=== PATIENT | female | born 1945 | race Two or more races ===

== ENCOUNTER 2017-10-19 22:15 | Inpatient (IN) | payer MEDICARE, OTHER ==
[~2017-10-19] VITALS: Ht 167.6 cm; Wt 68.0 kg
--- NOTE | 2017-10-20 | NUR ---
ADMITTED DIRECTLY FROM [facility], BROUGHT IN BY PARAMEDICS VIA GURNEY,CAME TO THE UNIT AROUND MIDNIGHT. ADMITTED ON 5150 HOLD FOR DTS. UPON FACE TO FACE PATIENT APPEARED DISHEVELED, HOPELESS AND DISTRESSED. DAUGHTER REPORTED THAT HER MOTHER HAD SUICIDAL IDEATION WITH A PLAN. PATIENT STATED, " I JUST WANTED TO , I WOULD LIKE TO TAKE THE PILLS. PATIENT WAS PLACED IN BED COMFORTABLY, SHOWS NO S/S OF ANY PAIN. RESPIRATION EVEN, BREATHING PATTERN NON-LABORED, NO ACUTE DISTRESS NOTED. PATIENT IS A/O X 3-4, THOUGHT PROCESS INTACT, APPROPRIATE, CALM, PLEASANT, COOPERATIVE, ANXIOUS, DEPRESSED. PATIENT IS A FULL CODE. BELONGINGS WERE INVENTORIED AND CHECKED FOR CONTRABAND, VALUABLES PUT TO SAFE. PATIENT IS UNDER THE PSYCHIATRIC CARE OF DR. FLORENTINO AND MEDICAL CARE OF DR. YAZ LAGOS. MRSA SCREEN DONE, SKIN ASSESSMENT DONE, PHOTO TAKEN. FOR SKIN CONSULT FOR FUNGAL INFECTION ON HER RIGHT HAND. DAUGHTERCHARANJIT CALLED THE UNIT, REQUESTING THAT SHE BE CALLED ANYTIME NEEDED, TEL. [phone]. SHE IS ALSO AWARE THAT HER MOTHER WAS ADMITTED TO THE UNIT. BED LOCKED AND PLACED ON LOWEST POSITION FOR SAFETY. WILL CONTINUE TO MONITOR Q 15 INS. FOR SAFETY AND BEHAVIOR
[2017-10-20] MEDS ORDERED: MAG HYDROX/AL HYDROX/SIMETH 30 ML UDC PO PRN (00:30)
--- NOTE | 2017-10-20 01:00 | NUR ---
DAUGHTER ABDULAZIZ CALLED THE UNIT REQUESTING TO BE CALLED ANYTIME IF NEEDED, TEL. [phone] AND IS AWARE OF HER MOTHER'S ADMISSION TO THE UNIT
[2017-10-20] MEDS ORDERED: MIDO5TAB PO (01:29)
[2017-10-20] MEDS ORDERED: METH2.5T PO (01:29)
[2017-10-20] MEDS ORDERED: DIPH1TAB PO (01:29)
[2017-10-20] MEDS ORDERED: MAGN296S44 PO (01:29)
[2017-10-20] MEDS ORDERED: CITA10TA9 PO (01:29)
[2017-10-20] MEDS ORDERED: CLON1TAB5 PO (01:29)
[2017-10-20] MEDS ORDERED: BACL10TA PO (01:29)
[2017-10-20] MEDS ORDERED: POLY17PO4 PO (01:29)
[2017-10-20] MEDS ORDERED: DICL100G26 TP (01:29)
[2017-10-20] MEDS ORDERED: HYDR200T4 PO (01:29)
[2017-10-20] MEDS ORDERED: RANI300C PO (01:29)
--- NOTE | 2017-10-20 10:00 | NUR ---
[id number]: NOTIFIED DR. SMITH ABOUT PT'S MED RECON NEEDS TO BE DONE.
[2017-10-20] MEDS: ACETAMINOPHEN 325 MG TABLET PO PRN (12:35)
--- NOTE | 2017-10-20 12:35 | NUR ---
[id number]: GAVE TYLENOL 650 MG PO DUE TO GENERALIZED PAIN 5/10 UPON PT REQUEST AND WILL CONTINUE TO MONITOR FOR EFFECTIVENESS OF MEDICATION
[2017-10-20] MEDS: MAGNESIUM HYDROXIDE 30 ML UDC PO PRN (12:45)
--- NOTE | 2017-10-20 12:45 | NUR ---
[id number]: GAVE MILK OF MAGNESIA 30 ML PO DUE TO CONSTIPATION UPON PT REQUEST AND WILL CONTINUE TO MONITOR FOR EFFECTIVENESS OF MEDICATION
--- NOTE | 2017-10-20 15:00 | NUR ---
[id number]: LEFT MESSAGE FOR DR. SMITH ABOUT PT'S MED RECON NEEDS TO BE DONE. PT ALSO WANTING NYSTATIN POWDER DAILY FOR PALM OF HAND HAS FUNGUS. PENDING RETURN PHONE CALL
[2017-10-20 16:00] VITALS: BP 136/72
[2017-10-20] MEDS ORDERED: MAGNESIUM CITRATE 296 ML BOTTLE PO PRN (17:00)
[2017-10-20] MEDS ORDERED: DIPHENOXYLATE HCL/ATROP SULF 1 UDTAB TABLET PO PRN (17:00)
[2017-10-20 20:00] VITALS: BP 141/86
[2017-10-20] MEDS: NYSTATIN TOP POWDER 15 GM BOTTLE TP SCH (20:37)
[2017-10-20] MEDS: FAMOTIDINE (20 MG) 20 MG TABLET PO SCH (21:22)
[2017-10-20] MEDS: MIRTAZAPINE 15 MG TABLET PO SCH (21:24)
[2017-10-21 07:11] LABS: BASOPHILS # (AUTO) 0.1 /CMM (0.0-0.2); EOSINOPHILS % (AUTO) 4.9 % (0.0-6.0); HEMATOCRIT 32 % (33-45); HEMOGLOBIN 10.9 g/dL (11.5-14.8); LYMPHOCYTES # (AUTO) 2.2 /CMM (0.8-4.8); LYMPHOCYTES % (AUTO) 36.8 % (20.0-44.0); MEAN CORPUSCULAR HEMOGLOBIN 33 PG (26.0-33.0); MEAN CORPUSCULAR HGB CONC 34 g/dl (31.0-36.0); MEAN CORPUSCULAR VOLUME 98 fL (82-100); MONOCYTES # (AUTO) 0.8 /CMM (0.1-1.30); NEUTROPHILS # (AUTO) 2.6 /CMM (1.8-8.9); NEUTROPHILS % (AUTO) 43.3 % (43.0-81.0); PLATELET COUNT (AUTO) 408 /CMM (150-450); RDW COEFFICIENT OF VARIATION 16.5 (11.5-15.0); RED BLOOD CELL COUNT(AUTO) 3.31 MIL/uL (4.0-5.2)
[2017-10-21 07:34] LABS: ALANINE AMINOTRANSFERASE 23 U/L (12-78); ALBUMIN 2.9 g/dL (3.4-5.0); ALKALINE PHOSPHATASE 115 U/L (46-116); ASPARTATE AMINOTRANSFERASE 16 U/L (15-37); BILIRUBIN,TOTAL 0.3 mg/dL (0.2-1.0); CALCIUM, SERUM 10.6 mg/dL (8.5-10.1); CARBON DIOXIDE 26 mmol/L (21-32); CHLORIDE 107 mmol/L (98-107); CREATININE 0.8 mg/dL (0.6-1.3); GLUCOSE 66 mg/dL (74-106); POTASSIUM 4.2 mmol/L (3.5-5.1); SODIUM SERUM 141 mmol/L (136-145); TOTAL PROTEIN, SERUM 6.4 g/dL (6.4-8.2); UREA NITROGEN, BLOOD 6 mg/dL (7-18)
[2017-10-21 07:39] LABS: CHOLESTEROL 141 mg/dL (<200); HDL CHOLESTEROL 33 mg/dL (40-60); LDL 96 mg/dL (0-99); TRIGLYCERIDES 132 mg/dL (30-150)
[2017-10-21 08:00] VITALS: BP 130/75
[2017-10-21] MEDS: POLYETHYLENE GLYCOL 3350 17 GM POWD.PACK PO SCH (09:00)
--- NOTE | 2017-10-21 09:00 | NUR ---
NURSING NOTE DR. HUERTA HAS BEEN NOTIFIED OF ABNORMAL LAB RESULTS, NO NEW ORDERS GIVEN. WILL CONTINUE TO MONITOR.
[2017-10-21] MEDS: HYDROXYCHLOROQUINE 200 MG TABLET PO SCH (09:07)
[2017-10-21] MEDS: FAMOTIDINE (20 MG) 20 MG TABLET PO SCH ×2 (09:07→20:27)
[2017-10-21] MEDS: NYSTATIN TOP POWDER 15 GM BOTTLE TP SCH (09:07)
[2017-10-21] MEDS: ACETAMINOPHEN 325 MG TABLET PO PRN (09:55)
--- NOTE | 2017-10-21 09:55 | NUR ---
NURSING NOTE PT C/O LOWER BACK AND BILATERAL LEG PAIN 07/08, TYLENOL 650MG PO GIVEN PER ORDER. WILL CONTINUE TO MONITOR.
[2017-10-21 16:00] VITALS: BP 110/75
[2017-10-21 17:36] LABS: APPEARANCE,URINE CLEAR (CLEAR); BILIRUBIN,URINE NEGATIVE (NEGATIVE); BLOOD, URINE NEGATIVE Ery/uL (NEGATIVE); COLOR,URINE YELLOW (YELLOW); KETONES,URINE NEGATIVE (NEGATIVE); LEUKOCYTE ESTERASE ,URINE TRACE (NEGATIVE); NITRITE, URINE NEGATIVE (NEGATIVE); PROTEIN,URINE NEGATIVE (NEGATIVE); UGLUCOSE NEGATIVE (NEGATIVE); UROBILINOGEN,URINE 0.2 EU/dL (0.2)
[2017-10-21 17:56] LABS: BACTERIA,URINE None seen /HPF (None Seen); RBC,URINE NONE SEEN /HPF (0-2); SQUAMOUS EPITHELIAL CELL,UR Rare /HPF (None Seen)
[2017-10-21 19:57] VITALS: BP 108/73
[2017-10-21] MEDS: TEMAZEPAM 7.5 MG CAPSULE PO PRN (20:29)
[2017-10-21] MEDS: MIRTAZAPINE 15 MG TABLET PO SCH (22:01)
--- NOTE | 2017-10-21 22:02 | NUR ---
AT 2028 TEMAZEPAM 7.5 MG CAP PO GIVEN FOR SLEEP PER PATIENT'S REQUEST
[2017-10-21] MEDS: BACLOFEN (10 MG) 10 MG TABLET PO PRN (22:25)
--- NOTE | 2017-10-21 22:25 | NUR ---
C/O PAIN ON BOTH LEGS, LIORESAL 10 MG TAB PO GIVEN.
[2017-10-22 08:00] VITALS: BP 100/55
[2017-10-22] MEDS: HYDROXYCHLOROQUINE 200 MG TABLET PO SCH (08:54)
[2017-10-22] MEDS: NYSTATIN TOP POWDER 15 GM BOTTLE TP SCH (08:54)
[2017-10-22] MEDS: MIDODRINE HCL (5MG) 5 MG TABLET PO SCH (08:54)
[2017-10-22] MEDS: FAMOTIDINE (20 MG) 20 MG TABLET PO SCH ×2 (08:54→21:05)
[2017-10-22] MEDS: POLYETHYLENE GLYCOL 3350 17 GM POWD.PACK PO SCH (08:54)
--- NOTE | 2017-10-22 11:51 | NUR ---
Initial Discharge Plan: Pt currently resides with her daughter, Annette ([phone]) and her grandson at [address] [place] [address]. Per pt, she would like to return home upon discharge. SW will work with the pt and the MD regarding appropriate discharge plans. SW will form a safe and proper discharge.
--- NOTE | 2017-10-22 11:55 | NUR ---
IRENA called the pt's daughter, Annette ([phone]), and left a message on her voicemail asking for a call back so that a discharge plan can be set up.
[2017-10-22] MEDS: MAGNESIUM HYDROXIDE 30 ML UDC PO PRN (13:57)
[2017-10-22 16:00] VITALS: BP 101/59
[2017-10-22] MEDS: ACETAMINOPHEN 325 MG TABLET PO PRN (17:18)
[2017-10-22] MEDS: LORAZEPAM 0.5 MG TABLET PO PRN (17:22)
[2017-10-22 19:58] VITALS: BP 97/57
[2017-10-22] MEDS: MIRTAZAPINE 15 MG TABLET PO SCH (21:05)
[2017-10-22 23:00] VITALS: BP 105/64
[2017-10-23 08:00] VITALS: BP 117/69
[2017-10-23] MEDS: POLYETHYLENE GLYCOL 3350 17 GM POWD.PACK PO SCH (08:43)
[2017-10-23] MEDS: HYDROXYCHLOROQUINE 200 MG TABLET PO SCH (08:43)
[2017-10-23] MEDS: BACLOFEN (10 MG) 10 MG TABLET PO PRN (09:01)
[2017-10-23] MEDS: ACETAMINOPHEN 325 MG TABLET PO PRN ×2 (09:02→21:14)
--- NOTE | 2017-10-23 09:15 | NUR ---
GPS/RN PATIENT C/O HEADACHE, ADMINISTERED TYLENOL 650 MG PER PATIENT REQUEST. WILL CONTINUE TO MONITOR.
[2017-10-23] MEDS: FAMOTIDINE (20 MG) 20 MG TABLET PO SCH ×2 (10:06→21:09)
[2017-10-23] MEDS: NYSTATIN TOP POWDER 15 GM BOTTLE TP SCH (10:11)
[2017-10-23 16:00] VITALS: BP 117/78
--- NOTE | 2017-10-23 16:59 | NUR ---
GPS/RN PATIENT C/O HEADACHE, ADMINISTERED TYLENOL 650 MG PER PATIENT REQUEST. WILL CONTINUE TO MONITOR.
[2017-10-23] MEDS ORDERED: PETROLATUM,WHITE PACKET 5 GM PACKET TP PRN (18:00)
[2017-10-23 20:00] VITALS: BP 117/65
[2017-10-23] MEDS: MIRTAZAPINE 15 MG TABLET PO SCH (21:09)
[2017-10-24 08:00] VITALS: BP 115/68
[2017-10-24] MEDS: FAMOTIDINE (20 MG) 20 MG TABLET PO SCH ×2 (08:18→21:01)
[2017-10-24] MEDS: HYDROXYCHLOROQUINE 200 MG TABLET PO SCH (08:18)
[2017-10-24] MEDS: POLYETHYLENE GLYCOL 3350 17 GM POWD.PACK PO SCH (08:19)
[2017-10-24] MEDS: ACETAMINOPHEN 325 MG TABLET PO PRN ×3 (08:22→21:00)
[2017-10-24] MEDS: NYSTATIN TOP POWDER 15 GM BOTTLE TP SCH (08:23)
[2017-10-24 16:00] VITALS: BP 111/71
[2017-10-24 19:30] VITALS: BP 141/71
[2017-10-24 20:00] VITALS: BP 141/71
[2017-10-24] MEDS: TEMAZEPAM 7.5 MG CAPSULE PO PRN (21:00)
[2017-10-24] MEDS: MIRTAZAPINE 15 MG TABLET PO SCH (21:00)
[2017-10-25 08:48] VITALS: BP 117/59
[2017-10-25] MEDS ORDERED: METHOTREXATE SODIUM (2.5MG) 2.5 MG TABLET PO SCH (09:00)
[2017-10-25] MEDS: POLYETHYLENE GLYCOL 3350 17 GM POWD.PACK PO SCH (09:00)
[2017-10-25] MEDS: HYDROXYCHLOROQUINE 200 MG TABLET PO SCH (09:18)
[2017-10-25] MEDS: FAMOTIDINE (20 MG) 20 MG TABLET PO SCH ×2 (09:18→21:33)
[2017-10-25] MEDS: NYSTATIN TOP POWDER 15 GM BOTTLE TP SCH (09:19)
[2017-10-25] MEDS: ACETAMINOPHEN 325 MG TABLET PO PRN ×3 (09:39→21:35)
[2017-10-25] MEDS: BACLOFEN (10 MG) 10 MG TABLET PO PRN (15:14)
[2017-10-25 16:11] VITALS: BP 110/56
[2017-10-25] MEDS: LORAZEPAM 0.5 MG TABLET PO PRN (17:47)
--- NOTE | 2017-10-25 18:00 | NUR ---
med. x1 with ativan,x2 with tylenol and baclofen x1.
[2017-10-25 19:30] VITALS: BP 93/54
[2017-10-25 20:00] VITALS: BP 93/54
[2017-10-25] MEDS: MIRTAZAPINE 15 MG TABLET PO SCH (21:33)
[2017-10-25] MEDS: TEMAZEPAM 7.5 MG CAPSULE PO PRN (21:33)
--- NOTE | 2017-10-25 21:35 | NUR ---
MOUNTER FLUTES AND PICCOLOS NOTES TYLENOL GIVEN PER PT REQUESTED FOR HER PAIN ON HER KNEE, WRIST AND BACK. RESTORIL ALSO GIVEN SHE REQUESTED.SAFETY PRECAUTION IMPLEMENTED FOR PT SAFETY. KEPT HER WARM AND COMFORTABLE AT ALL TIMES. WILL CONTINUE TO MONITOR.
--- NOTE | 2017-10-26 | NUR ---
[employer] PROFESSIONAL NOTES CHECKED PT SLEEPING COMFORTABLY IN BED WITHOUT ANY ACUTE DISTRESS NOTED.
[2017-10-26 08:00] VITALS: BP 130/73
[2017-10-26] MEDS: FAMOTIDINE (20 MG) 20 MG TABLET PO SCH ×2 (08:05→21:13)
[2017-10-26] MEDS: POLYETHYLENE GLYCOL 3350 17 GM POWD.PACK PO SCH (08:05)
[2017-10-26] MEDS: HYDROXYCHLOROQUINE 200 MG TABLET PO SCH (08:05)
[2017-10-26] MEDS: ACETAMINOPHEN 325 MG TABLET PO PRN ×2 (08:14→17:11)
--- NOTE | 2017-10-26 08:14 | NUR ---
[id number]: GAVE TYLENOL 650 MG PO DUE TO GENERALIZED PAIN 5/10 UPON PT REQUEST AND WILL CONTINUE TO MONITOR FOR EFFECTIVENESS OF MEDICATION
[2017-10-26] MEDS: NYSTATIN TOP POWDER 15 GM BOTTLE TP SCH (08:43)
[2017-10-26 16:02] VITALS: BP 112/60
--- NOTE | 2017-10-26 17:11 | NUR ---
[id number]: GAVE TYLENOL 650 MG PO DUE TO GENERALIZED PAIN 5/10 UPON PT REQUEST AND WILL CONTINUE TO MONITOR FOR EFFECTIVENESS OF MEDICATION
[2017-10-26 19:41] VITALS: BP 147/67
[2017-10-26] MEDS: MIRTAZAPINE 15 MG TABLET PO SCH (21:13)
[2017-10-26] MEDS: TEMAZEPAM 7.5 MG CAPSULE PO PRN (22:22)
[2017-10-27 08:00] VITALS: BP 93/60
[2017-10-27] MEDS: BACLOFEN (10 MG) 10 MG TABLET PO PRN ×2 (08:25→19:48)
[2017-10-27] MEDS: FAMOTIDINE (20 MG) 20 MG TABLET PO SCH ×2 (08:25→21:59)
[2017-10-27] MEDS: ACETAMINOPHEN 325 MG TABLET PO PRN ×3 (08:25→21:49)
[2017-10-27] MEDS: NYSTATIN TOP POWDER 15 GM BOTTLE TP SCH (08:25)
[2017-10-27] MEDS: HYDROXYCHLOROQUINE 200 MG TABLET PO SCH (08:25)
[2017-10-27] MEDS: POLYETHYLENE GLYCOL 3350 17 GM POWD.PACK PO SCH (08:26)
--- NOTE | 2017-10-27 12:47 | NUR ---
IRENA called the pt's daughter, Annette ([phone]), and left a message on her voicemail regarding the pt's discharge tomorrow.
[2017-10-27 16:00] VITALS: BP 141/79
[2017-10-27 19:47] VITALS: BP 132/62
--- NOTE | 2017-10-27 20:00 | NUR ---
DR. FLORENTINO CALLED PATIENT'S DAUGHTER REGARDING PENDING DISCHARGE TOMORROW AT HER REQUEST. PATIENT SPOKE TO DAUGHTER ON PHONE ALSO.
--- NOTE | 2017-10-27 20:15 | NUR ---
GPS RN NOTE, RECEIVED PATIENT AWAKE AND WALKING WITH WALKER IN HALLWAY, NO S/S OR COMPLAINTS OF PAIN AT THIS TIME. NO S/S OF APPARENT DISTRESS. BREATHING UNLABORED WITH EQUAL RISE AND FALL CHEST. PATIENT IS ALERT AND ORIENTED X 3 ON ROOM AIR WITH A SPO2 99 %. PATIENT IS PLEASANT UPON APPROACH, ANXIOUS, NEEDY BUT COOPERATIVE AND MAKES NEEDS KNOWN APPROPRIATELY. AWARE OF PENDING DISCHARGE, PT CALLED DAUGHTER TO DISCUSS ON PHONE. PATIENT DENIES SUICIDE IDEATIONS AND HOMICIDAL IDEATIONS AT THIS TIME. PATIENT EDUCATED ON THE USE OF THE CALL ARBOLEDA. PATIENT BED SIDE RAILS UP X 2 FOR SAFETY, BED IS LOCKED AND LOW, WILL CONTINUE TO MONITOR AND MAINTAIN SAFETY.
[2017-10-27] MEDS: MIRTAZAPINE 15 MG TABLET PO SCH (21:47)
[2017-10-27] MEDS: TEMAZEPAM 7.5 MG CAPSULE PO PRN (22:48)
[2017-10-28] MEDS: NYSTATIN TOP POWDER 15 GM BOTTLE TP SCH (08:25)
[2017-10-28] MEDS: ACETAMINOPHEN 325 MG TABLET PO PRN ×2 (08:25→15:38)
[2017-10-28] MEDS: BACLOFEN (10 MG) 10 MG TABLET PO PRN (08:25)
[2017-10-28] MEDS: HYDROXYCHLOROQUINE 200 MG TABLET PO SCH (08:39)
[2017-10-28] MEDS: POLYETHYLENE GLYCOL 3350 17 GM POWD.PACK PO SCH (08:39)
[2017-10-28] MEDS: FAMOTIDINE (20 MG) 20 MG TABLET PO SCH ×2 (08:39→21:20)
--- NOTE | 2017-10-28 10:55 | NUR ---
SW called the pt's daughter, Annette ([phone]), and left a message on her voicemail stating that the pt's discharge got pushed back one more day and that the SW will leave a note for the psychiatrist to call the daughter whenever he can.
--- NOTE | 2017-10-28 11:33 | NUR ---
Annette ([phone]) called the SW back and she was informed that the pt is going to be discharged on the following day. Daughter stated that she will be able to come clam picker the pt around 7:30pm.
--- NOTE | 2017-10-28 14:33 | NUR ---
Annette ([phone]) called the SW and informed her that their car would not be able to pick the pt up and so an ambulance with [facility] would have to be provided because they had stated they would transport the pt home.
--- NOTE | 2017-10-28 15:45 | NUR ---
SW called the Director of Case Management, Shine ([phone]), who stated that [facility] is not going to arrange the transportation like the daughter had stated.
[2017-10-28 16:00] VITALS: BP 116/67
--- NOTE | 2017-10-28 16:14 | NUR ---
IRENA called the pt's daughter, Annette ([phone]), and left a message on her voicemail stating that [facility] is not arranging transport like she had mentioned and therefore the pt needs a different transportation.
[2017-10-28 20:12] VITALS: BP 127/76
[2017-10-28] MEDS: MIRTAZAPINE 15 MG TABLET PO SCH (21:20)
--- NOTE | 2017-10-28 22:21 | NUR ---
GPS RN NOTES ALL HS MED GIVEN PT. TOLERATE WELL DENIES ANY DISCOMFORT NO ACUTE DISTRESS NOTED, WILL CONTINUITY WITH CARE.
[2017-10-28] MEDS: TEMAZEPAM 7.5 MG CAPSULE PO PRN (23:21)
[2017-10-29] MEDS: ACETAMINOPHEN 325 MG TABLET PO PRN ×3 (06:22→18:47)
[2017-10-29 08:00] VITALS: BP 103/73
[2017-10-29] MEDS: FAMOTIDINE (20 MG) 20 MG TABLET PO SCH (08:50)
[2017-10-29] MEDS: HYDROXYCHLOROQUINE 200 MG TABLET PO SCH (08:50)
[2017-10-29] MEDS: MIDODRINE HCL (5MG) 5 MG TABLET PO SCH (08:50)
[2017-10-29] MEDS: NYSTATIN TOP POWDER 15 GM BOTTLE TP SCH (08:50)
[2017-10-29] MEDS: POLYETHYLENE GLYCOL 3350 17 GM POWD.PACK PO SCH (08:50)
[2017-10-29] MEDS: LORAZEPAM 0.5 MG TABLET PO PRN (13:35)
--- NOTE | 2017-10-29 15:35 | NUR ---
Discharge Plan: Pt was discharged home to [address] [place] [address]; ([phone]). Pt was picked up by a family friend, Richard Wright ([phone]) at 7:30PM. Pt will be looked after by her daughter, Annette ([phone]). Upon discharge, the pt appeared to be in a euthymic mood with an anxious affect. The pt stated that she is really worried about her social security and getting back to her life since she has been gone for over a week. Pt denied having any hallucinations and denied having any suicidal or homicidal ideation. Pt was referred to be under the care of psychiatrist, Dr. Jfef Farah, located [address] [place] [address]; and an elevator troubleshooter, Dr. Adele Gómez, located at [address] [place] [address]; .
[2017-10-29 16:00] VITALS: BP 134/73
[2017-10-29] MEDS ORDERED: MIDODRINE HCL (5MG) 5 MG TABLET PO SCH (17:00)
[2017-10-29] MEDS: BACLOFEN (10 MG) 10 MG TABLET PO PRN (17:12)
[2017-10-29 20:20] VITALS: BP 110/62
--- NOTE | 2017-10-29 20:23 | NUR ---
RN GPS NOTES PT. DISCHARGE HOME WITH MD ORDERS , LEFT UNIT IN STABLE CONDITION , PICKED UP BY FAMILY FRIEND MARIAM ANTHONY AND ACCOMPIEND BY TRAILER ASSEMBLER TO LOBBY AND PT. LEFT WITH ALL BELONGINS AND SIGNED ALL EXIT CARE CARE , DENIES SI / HI AT THIS TIME DENIES COMMAND AH /VH AT THIS TIME, PT. REFUSED SKIN ASSESSMENT ENCOURAGED STILL RESFUSED , PT . STATUS I AM HAPPY TO GO HOME.
--- NOTE | 2017-10-29 20:37 | NUR ---
RN GPS NOTES/ DISCHARGE NOTES PT. DISCHARGE HOME WITH MD ORDERS , LEFT UNIT IN STABLE CONDITION , PICKED UP BY FAMILY FRIEND MARIAM ANTHONY AND ACCOMPIEND BY ALLERGIST IMMUNOLOGIST TO TE AND PT. LEFT WITH ALL BELONGINS AND SIGNED ALL EXIT CARE AND DISCHARGE INSTRUCTION GIVEN VERBALIZED UNDER STANDING , DENIES SI / HI AT THIS TIME DENIES COMMAND AH /VH AT THIS TIME, PT. REFUSED SKIN ASSESSMENT ENCOURAGED STILL RESFUSED , PT . STATUS I AM HAPPY TO GO HOME.
== END 2017-10-29 20:33 | disposition home or self-care (01) | DRG 885 ==
LOC: GPS 23:44
PROVIDERS: ADMIT Psychiatry & Neurology Psychiatry; ATTEND Psychiatry & Neurology Psychiatry
DX: F33.2 Major depressive disorder, recurrent severe without psychotic features (principal); R45.851 Suicidal ideations; E44.0 Moderate protein-calorie malnutrition; F29 Unspecified psychosis not due to a substance or known physiological condition; M06.9 Rheumatoid arthritis, unspecified; M19.90 Unspecified osteoarthritis, unspecified site; D64.9 Anemia, unspecified
CPT/HCPCS: 36415; 80053-TC; 80061-TC; 81000-TC; 85025-TC; 87081-TC; J8610

== ENCOUNTER 2019-02-08 04:34 | Inpatient (IN) | payer MEDICARE, OTHER ==
[2019-02-08] VITALS (13 sets, daily range): BP systolic 98–142; BP diastolic 55–80
[~2019-02-08] VITALS: Ht 167.6 cm; Wt 77.1 kg
[~2019-02-08 04:34] MED LIST: BACL10TA PO; DICL100G26 TP; DIPH1TAB PO; HYDR200T4 PO; MAGN296S44 PO; METH2.5T PO; MIDO5TAB4 PO; POLY17PO4 PO; RANI300C PO
[2019-02-08] MEDS ORDERED: BUPIVACAINE 0.5 % PF 150 MG/30 ML VIAL ONE (06:20)
[2019-02-08] MEDS ORDERED: ANESTHESIA TRAY IN PYXIS 1 EA TRAY MC ONE (06:20)
[2019-02-08] MEDS ORDERED: BACITRACIN 50000 UNITS/VIAL ONE (06:20)
[2019-02-08] MEDS ORDERED: MIDAZOLAM HCL 2 MG/2ML VIAL ONE (06:22)
[2019-02-08] MEDS ORDERED: FENTANYL PF 250MCG/5ML AMPUL ONE (06:23)
[2019-02-08] MEDS ORDERED: FENTANYL PF 100MCG/2ML AMPUL ONE ×2 (06:23→09:14)
[2019-02-08] MEDS ORDERED: ROCURONIUM BROMIDE 50 MG/5 ML ONE ×2 (06:24→06:50)
[2019-02-08] MEDS ORDERED: MEPERIDINE HCL/PF 100 MG/ML DISP.SYRIN ONE (06:24)
[2019-02-08] MEDS ORDERED: FAMOTIDINE/PF INJ 20 MG/2 ML VIAL IV ONE (06:25)
[2019-02-08] MEDS ORDERED: CLINDAMYCIN 900 MG/6 ML VIAL ONE (06:50)
[2019-02-08] MEDS ORDERED: TRANEXAMIC ACID 3,000 MG in SODIUM CHLORIDE IRRIG SOLUTION 70 ML IR ONE (07:00)
[2019-02-08] MEDS ORDERED: DOCUSATE SODIUM 250 MG CAPSULE PO PRN (09:30)
[2019-02-08] MEDS ORDERED: HYDROCODONE/APAP 5/325MG 1 EACH TABLET PO PRN ×2 (09:30→11:00)
[2019-02-08] MEDS ORDERED: ONDANSETRON HCL/PF 4 MG/2 ML VIAL IVP PRN ×3 (09:30→11:00)
[2019-02-08] MEDS ORDERED: ACETAMINOPHEN 325 MG TABLET PO PRN ×2 (09:30→11:00)
[2019-02-08] MEDS ORDERED: ZOLPIDEM TARTRATE 5 MG TABLET PO PRN ×2 (09:30→11:00)
[2019-02-08] MEDS ORDERED: SENNOSIDES 8.6 MG TABLET PO PRN (09:30)
[2019-02-08] MEDS ORDERED: BISACODYL SUPP (10 MG) 10 MG/SUPP.RECT SUPP.RECT RC PRN (09:30)
[2019-02-08] MEDS ORDERED: METHOTREXATE SODIUM (2.5MG) 2.5 MG TABLET PO SCH (11:00)
[2019-02-08] MEDS ORDERED: Z GUARD REMEDY 2 OZ OINT TP PRN (11:00)
[2019-02-08] MEDS ORDERED: MENTHOL/CETYLPYRD (CEPACOL) 1 LOZ LOZENGE MM PRN (11:00)
[2019-02-08] MEDS ORDERED: MORPHINE SULFATE INJ 2 MG/ML DISP.SYRIN IV PRN (11:00)
[2019-02-08] MEDS ORDERED: MAGNESIUM HYDROXIDE 30 ML UDC PO PRN ×2 (11:00)
[2019-02-08] MEDS ORDERED: MAG HYDROX/AL HYDROX/SIMETH 30 ML UDC PO PRN ×2 (11:00)
[2019-02-08] MEDS ORDERED: NALOXONE HCL 0.4 MG/ML AMPUL IV PRN (11:00)
[2019-02-08] MEDS ORDERED: CLONIDINE HCL 0.1 MG TABLET PO PRN (11:00)
[2019-02-08] MEDS ORDERED: oxyCODONE IR immediate release 5 MG PO PRN (11:00)
[2019-02-08] MEDS ORDERED: diphenhydrAMINE HCL 25 MG CAPSULE PO PRN (11:00)
[2019-02-08] MEDS: HYDROMORPHONE 1 MG/1 ML DISP.SYRIN IV PRN ×2 (11:10→17:24)
[2019-02-08] MEDS ORDERED: ASCO500T9 PO (11:15)
[2019-02-08] MEDS ORDERED: CALC0.253 PO (11:15)
[2019-02-08] MEDS ORDERED: HYDR12.55 PO (11:15)
[2019-02-08] MEDS ORDERED: MIRT30TA7 PO (11:15)
[2019-02-08] MEDS ORDERED: DULO60CA45 PO (11:15)
[2019-02-08] MEDS ORDERED: PREG75CA PO (11:15)
[2019-02-08] MEDS ORDERED: MULT-447 PO (11:15)
[2019-02-08] MEDS ORDERED: LEVO75TA7 PO (11:15)
[2019-02-08] MEDS ORDERED: OXYC-133 PO (11:15)
[2019-02-08] MEDS ORDERED: CHOL100044 PO (11:15)
[2019-02-08] MEDS ORDERED: ASPI-1169 PO (11:15)
[2019-02-08] MEDS ORDERED: DEXL60CA3 PO (11:15)
[2019-02-08] MEDS ORDERED: FAMO20TA8 PO (11:15)
[2019-02-08] MEDS: MIDODRINE HCL (5MG) 5 MG TABLET PO SCH ×2 (12:30→17:23)
[2019-02-08] MEDS: PREGABALIN 25 MG CAPSULE PO SCH ×2 (12:31→17:23)
[2019-02-08] MEDS: oxyCODONE IR immediate release 5 MG PO PRN (12:36)
[2019-02-08] MEDS: IV D5/0.45 NACL 1,000 ML IV PRN (12:47)
[2019-02-08] MEDS: CLINDAMYCIN 600 MG in IV D5W 50 ML IV SCH ×2 (12:47→18:07)
[2019-02-08] MEDS ORDERED: FAMOTIDINE (20 MG) 20 MG TABLET PO SCH ×2 (17:00→21:00)
[2019-02-08] MEDS ORDERED: RANITIDINE HCL PO SCH (17:00)
[2019-02-08] MEDS: DOCUSATE SODIUM 100 MG CAPSULE PO SCH (17:23)
[2019-02-08] MEDS: HYDROMORPHONE 1 MG/1 ML DISP.SYRIN SQ PRN (20:10)
[2019-02-08] MEDS ORDERED: MENTHOL/CETYLPYRD (CEPACOL) 1 LOZ LOZENGE MM ONE (20:40)
[2019-02-08] MEDS: FAMOTIDINE (20 MG) 20 MG TABLET PO SCH (21:12)
[2019-02-08] MEDS ORDERED: MIRTAZAPINE 15 MG TABLET PO SCH (22:00)
[2019-02-08] MEDS ORDERED: MIRTAZAPINE 15 MG TABLET PO PRN (22:00)
[2019-02-09] MEDS: HYDROMORPHONE 1 MG/1 ML DISP.SYRIN SQ PRN ×2 (00:14→05:24)
[2019-02-09] MEDS: CLINDAMYCIN 600 MG in IV D5W 50 ML IV SCH (00:28)
[2019-02-09 06:38] LABS: BASOPHILS % (AUTO) 0.5 % (0.0-2.0); EOSINOPHILS % (AUTO) 0.2 % (0.0-6.0); HEMATOCRIT 31 % (33-45); HEMOGLOBIN 10.5 g/dL (11.5-14.8); LYMPHOCYTES # (AUTO) 0.8 /CMM (0.8-4.8); LYMPHOCYTES % (AUTO) 9.9 % (20.0-44.0); MEAN CORPUSCULAR HGB CONC 34 g/dl (31.0-36.0); MEAN CORPUSCULAR VOLUME 97 fL (82-100); MONOCYTES # (AUTO) 0.6 /CMM (0.1-1.30); MONOCYTES % (AUTO) 7.9 % (2.0-12.0); NEUTROPHILS # (AUTO) 6.6 /CMM (1.8-8.9); NEUTROPHILS % (AUTO) 81.5 % (43.0-81.0); PLATELET COUNT (AUTO) 203 /CMM (150-450); RED BLOOD CELL COUNT(AUTO) 3.21 MIL/uL (4.0-5.2); WHITE BLOOD COUNT (AUTO) 8.1 K/uL (4.3-11.0)
[2019-02-09 06:49] LABS: CALCIUM, SERUM 6.6 mg/dL (8.5-10.1); CARBON DIOXIDE 25 mmol/L (21-32); CHLORIDE 103 mmol/L (98-107); CREATININE 1.7 mg/dL (0.6-1.3); GLUCOSE 123 mg/dL (74-106); MAGNESIUM 1.6 mg/dL (1.8-2.4); PHOSPHORUS 2.7 mg/dL (2.5-4.9); POTASSIUM 3.3 mmol/L (3.5-5.1); SODIUM SERUM 137 mmol/L (136-145); UREA NITROGEN, BLOOD 20 mg/dL (7-18)
[2019-02-09 06:50] LABS: CHOLESTEROL 154 mg/dL (<200); HDL CHOLESTEROL 60 mg/dL (40-60); LDL 82 mg/dL (0-99); TRIGLYCERIDES 66 mg/dL (30-150)
[2019-02-09 08:00] VITALS: BP 104/58
[2019-02-09] MEDS: oxyCODONE IR immediate release 5 MG PO PRN ×3 (08:33→21:08)
[2019-02-09] MEDS: ASPIRIN 325 MG TABLET PO SCH ×2 (08:35→16:29)
[2019-02-09] MEDS: PREGABALIN 25 MG CAPSULE PO SCH ×2 (08:35→16:29)
[2019-02-09] MEDS: DULOXETINE HCL 30 MG CAPSULE.DR PO SCH (08:35)
[2019-02-09] MEDS: DOCUSATE SODIUM 100 MG CAPSULE PO SCH ×2 (08:35→16:29)
[2019-02-09] MEDS: LEVOTHYROXINE SODIUM 75 MCG TABLET PO SCH (08:36)
[2019-02-09] MEDS: ASCORBIC ACID 500 MG TABLET PO SCH (08:36)
[2019-02-09] MEDS: MIDODRINE HCL (5MG) 5 MG TABLET PO SCH ×2 (08:36→16:29)
[2019-02-09] MEDS: CHOLECALCIFEROL 1,000 UNIT TABLET (VIT D3) PO SCH (08:36)
[2019-02-09] MEDS: FAMOTIDINE (20 MG) 20 MG TABLET PO SCH ×2 (08:37→21:08)
[2019-02-09] MEDS: MULTIVIT W/MINERALS 1 TAB TABLET PO SCH (08:37)
[2019-02-09] MEDS: PANTOPRAZOLE 40 MG TABLET.DR PO SCH (08:37)
[2019-02-09] MEDS: CALCITRIOL 0.25 MCG CAPSULE PO SCH (09:00)
[2019-02-09] MEDS: HYDROCHLOROTHIAZIDE 25 MG TABLET PO SCH (09:00)
[2019-02-09] MEDS ORDERED: MAGNESIUM CITRATE 296 ML BOTTLE PO SCH (09:00)
[2019-02-09] MEDS ORDERED: BACLOFEN (10 MG) 10 MG TABLET PO PRN (09:00)
[2019-02-09] MEDS ORDERED: HYDROXYCHLOROQUINE 200 MG TABLET PO SCH (09:00)
[2019-02-09] MEDS ORDERED: ASPIRIN 81 MG TAB.CHEW PO SCH (09:00)
[2019-02-09] MEDS ORDERED: DIPHENOXYLATE HCL/ATROP SULF 1 UDTAB TABLET PO SCH (09:00)
[2019-02-09] MEDS ORDERED: POLYETHYLENE GLYCOL 3350 17 GM POWD.PACK PO SCH (09:00)
[2019-02-09] MEDS ORDERED: POTASSIUM CHLORIDE 10 MEQ TABLET.SA PO ONE (11:00)
[2019-02-09] MEDS ORDERED: Magnesium 1GM/D5W 100ML PREMIX 100 ML IV SCH (11:28)
[2019-02-09] MEDS: IV D5/0.45 NACL 1,000 ML IV PRN (12:01)
[2019-02-09 16:00] VITALS: BP 122/52
[2019-02-09 20:00] VITALS: BP 104/55
[2019-02-10] MEDS: oxyCODONE IR immediate release 5 MG PO PRN ×2 (05:56→09:49)
[2019-02-10 06:47] LABS: APPEARANCE,URINE SL CLOUDY (CLEAR); BILIRUBIN,URINE NEGATIVE (NEGATIVE); BLOOD, URINE NEGATIVE Ery/uL (NEGATIVE); COLOR,URINE YELLOW (YELLOW); KETONES,URINE NEGATIVE (NEGATIVE); LEUKOCYTE ESTERASE ,URINE SMALL (NEGATIVE); NITRITE, URINE NEGATIVE (NEGATIVE); PH,URINE 5.5 (5.0-8.0); PROTEIN,URINE NEGATIVE (NEGATIVE); UGLUCOSE NEGATIVE (NEGATIVE); UROBILINOGEN,URINE 0.2 EU/dL (0.2)
[2019-02-10 06:52] LABS: CREATININE, URINE 190.5 MG/DL (30.0-125.0); URINE TOTAL PROTEIN 66.9 mg/dL (0-11.9)
[2019-02-10 06:57] LABS: BACTERIA,URINE 1+ /HPF (None Seen); MUCUS,URINE Moderate /LPF (None Seen); URINE AMORPHOUS URATE Moderate /HPF (None Seen)
[2019-02-10 07:07] LABS: BASOPHILS # (AUTO) 0.1 /CMM (0.0-0.2); EOSINOPHILS % (AUTO) 4.1 % (0.0-6.0); HEMATOCRIT 27 % (33-45); HEMOGLOBIN 9.3 g/dL (11.5-14.8); LYMPHOCYTES % (AUTO) 17.4 % (20.0-44.0); MEAN CORPUSCULAR HGB CONC 34 g/dl (31.0-36.0); MEAN CORPUSCULAR VOLUME 96 fL (82-100); MONOCYTES # (AUTO) 0.6 /CMM (0.1-1.30); MONOCYTES % (AUTO) 10.6 % (2.0-12.0); NEUTROPHILS # (AUTO) 3.9 /CMM (1.8-8.9); NEUTROPHILS % (AUTO) 66.9 % (43.0-81.0); PLATELET COUNT (AUTO) 170 /CMM (150-450); RED BLOOD CELL COUNT(AUTO) 2.84 MIL/uL (4.0-5.2); WHITE BLOOD COUNT (AUTO) 5.8 K/uL (4.3-11.0)
[2019-02-10 07:43] LABS: ALANINE AMINOTRANSFERASE 23 U/L (12-78); ALBUMIN 2.6 g/dL (3.4-5.0); ALKALINE PHOSPHATASE 60 U/L (46-116); ASPARTATE AMINOTRANSFERASE 21 U/L (15-37); BILIRUBIN,TOTAL 0.9 mg/dL (0.2-1.0); CALCIUM, SERUM 6.5 mg/dL (8.5-10.1); CARBON DIOXIDE 21 mmol/L (21-32); CHLORIDE 99 mmol/L (98-107); CREATININE 2.1 mg/dL (0.6-1.3); GLUCOSE 120 mg/dL (74-106); MAGNESIUM 1.9 mg/dL (1.8-2.4); PHOSPHORUS 1.8 mg/dL (2.5-4.9); POTASSIUM 3.2 mmol/L (3.5-5.1); SODIUM SERUM 130 mmol/L (136-145); TOTAL PROTEIN, SERUM 5.7 g/dL (6.4-8.2); UREA NITROGEN, BLOOD 33 mg/dL (7-18)
[2019-02-10 07:46] LABS: CREATINE KINASE, TOTAL 212 U/L (26-192)
[2019-02-10 08:00] VITALS: BP 122/67
[2019-02-10] MEDS: HYDROCHLOROTHIAZIDE 25 MG TABLET PO SCH (09:00)
[2019-02-10 09:51] LABS: EOSINOPHIL,URINE None Seen
[2019-02-10] MEDS: ASCORBIC ACID 500 MG TABLET PO SCH (09:55)
[2019-02-10] MEDS: PREGABALIN 25 MG CAPSULE PO SCH ×2 (09:55→17:00)
[2019-02-10] MEDS: MIDODRINE HCL (5MG) 5 MG TABLET PO SCH ×2 (09:55→17:00)
[2019-02-10] MEDS: MULTIVIT W/MINERALS 1 TAB TABLET PO SCH (09:55)
[2019-02-10] MEDS: FAMOTIDINE (20 MG) 20 MG TABLET PO SCH ×2 (09:57→20:14)
[2019-02-10] MEDS: DOCUSATE SODIUM 100 MG CAPSULE PO SCH ×2 (09:57→17:00)
[2019-02-10] MEDS: ASPIRIN 325 MG TABLET PO SCH ×2 (09:57→17:00)
[2019-02-10] MEDS: LEVOTHYROXINE SODIUM 75 MCG TABLET PO SCH (09:57)
[2019-02-10] MEDS: CHOLECALCIFEROL 1,000 UNIT TABLET (VIT D3) PO SCH (09:57)
[2019-02-10] MEDS: DULOXETINE HCL 30 MG CAPSULE.DR PO SCH (09:57)
[2019-02-10] MEDS: PANTOPRAZOLE 40 MG TABLET.DR PO SCH (09:58)
[2019-02-10] MEDS: CALCITRIOL 0.25 MCG CAPSULE PO SCH (09:59)
[2019-02-10] MEDS ORDERED: POTASSIUM CHLORIDE 10 MEQ TABLET.SA PO ONE (10:45)
[2019-02-10] MEDS ORDERED: NEUTRA PHOS 1 POWD.PACKET PO ONE (13:00)
[2019-02-10] MEDS ORDERED: BARIUM SULFATE 148 GM SUSP.RECON PO ONE (14:24)
[2019-02-10] MEDS ORDERED: BARIUM SULFATE 240 ML ORAL.SUSP PO ONE (14:24)
[2019-02-10 16:00] VITALS: BP 88/46
[2019-02-10 20:00] VITALS: BP 108/67
[2019-02-10 20:13] VITALS: BP 108/61
[2019-02-10 20:29] LABS: IRON, SERUM 16 ug/dl (50-175); TOTAL IRON BINDING CAPACITY 225 ug/dl (250-450)
[2019-02-10 20:42] LABS: FERRITIN 134 ng/mL (8-388)
[2019-02-10] MEDS: HYDROMORPHONE 1 MG/1 ML DISP.SYRIN SQ PRN (22:41)
[2019-02-10] MEDS: IV D5/0.45 NACL 1,000 ML IV PRN (22:56)
[2019-02-11] MEDS: HYDROMORPHONE 1 MG/1 ML DISP.SYRIN SQ PRN (03:45)
[2019-02-11 06:36] LABS: BASOPHILS % (AUTO) 0.5 % (0.0-2.0); EOSINOPHILS % (AUTO) 2.8 % (0.0-6.0); HEMATOCRIT 25 % (33-45); HEMOGLOBIN 8.5 g/dL (11.5-14.8); LYMPHOCYTES % (AUTO) 23.7 % (20.0-44.0); MEAN CORPUSCULAR HGB CONC 35 g/dl (31.0-36.0); MEAN CORPUSCULAR VOLUME 95 fL (82-100); MONOCYTES # (AUTO) 0.5 /CMM (0.1-1.30); MONOCYTES % (AUTO) 12.6 % (2.0-12.0); NEUTROPHILS # (AUTO) 2.5 /CMM (1.8-8.9); NEUTROPHILS % (AUTO) 60.4 % (43.0-81.0); PLATELET COUNT (AUTO) 159 /CMM (150-450); RED BLOOD CELL COUNT(AUTO) 2.58 MIL/uL (4.0-5.2); WHITE BLOOD COUNT (AUTO) 4.2 K/uL (4.3-11.0)
[2019-02-11 06:54] LABS: ALBUMIN 2.4 g/dL (3.4-5.0); BILIRUBIN,TOTAL 0.8 mg/dL (0.2-1.0); CALCIUM, SERUM 6.6 mg/dL (8.5-10.1); CREATININE 1.2 mg/dL (0.6-1.3); MAGNESIUM 2.1 mg/dL (1.8-2.4); PHOSPHORUS 1.4 mg/dL (2.5-4.9); POTASSIUM 3.1 mmol/L (3.5-5.1); TOTAL PROTEIN, SERUM 5.6 g/dL (6.4-8.2)
[2019-02-11] MEDS: LEVOTHYROXINE SODIUM 75 MCG TABLET PO SCH (07:30)
[2019-02-11] MEDS: PANTOPRAZOLE 40 MG TABLET.DR PO SCH (07:30)
[2019-02-11 08:05] VITALS: BP 109/55
[2019-02-11] MEDS: DOCUSATE SODIUM 100 MG CAPSULE PO SCH ×2 (09:00→17:00)
[2019-02-11] MEDS: CHOLECALCIFEROL 1,000 UNIT TABLET (VIT D3) PO SCH (09:00)
[2019-02-11] MEDS: ASPIRIN 325 MG TABLET PO SCH ×2 (09:00→17:00)
[2019-02-11] MEDS: FAMOTIDINE (20 MG) 20 MG TABLET PO SCH ×2 (09:00→21:00)
[2019-02-11] MEDS: CALCITRIOL 0.25 MCG CAPSULE PO SCH (09:00)
[2019-02-11] MEDS: DULOXETINE HCL 30 MG CAPSULE.DR PO SCH (09:00)
[2019-02-11] MEDS: ASCORBIC ACID 500 MG TABLET PO SCH (09:00)
[2019-02-11] MEDS: MIDODRINE HCL (5MG) 5 MG TABLET PO SCH ×2 (09:00→17:00)
[2019-02-11] MEDS: MULTIVIT W/MINERALS 1 TAB TABLET PO SCH (09:00)
[2019-02-11] MEDS: PREGABALIN 25 MG CAPSULE PO SCH ×2 (09:00→17:00)
[2019-02-11] MEDS: IV D5/0.45 NACL 1,000 ML IV PRN (09:44)
[2019-02-11 11:08] LABS: *SPE A/G RATIO 1.1 (0.7-1.7); *SPE ALBUMIN 2.6 g/dL (2.9-4.4); *SPE ALPHA-1-GLOBULIN 0.4 g/dL (0.0-0.4); *SPE ALPHA-2-GLOBULIN 0.7 g/dL (0.4-1.0); *SPE BETA GLOBULIN 0.8 g/dL (0.7-1.3); *SPE GLOBULIN, TOTAL 2.4 g/dL (2.2-3.9); *SPE M-SPIKE Not Observed g/dL (Not Observed); *SPEGAMMA GLOBULIN 0.6 g/dL (0.4-1.8)
[2019-02-11] MEDS ORDERED: K PHOS NEUTRAL 250 MG TABLET PO ONE (12:00)
[2019-02-11 12:07] LABS: PTH, INTACT 79 pg/mL (15-65)
[2019-02-11] MEDS: POTASSIUM CL. PREMIX PERIPHER. 50 ML IV SCH ×6 (12:40→21:43)
[2019-02-11 16:00] VITALS: BP 147/68
[2019-02-11] MEDS: IV D5/ 0.9% NACL 1,000 ML IV PRN (16:07)
[2019-02-11] MEDS: CEFTRIAXONE 1 G in IV D5W 50 ML IV SCH (18:19)
[2019-02-11 20:00] VITALS: BP 135/59
[2019-02-11 21:47] LABS: APPEARANCE,URINE CLEAR (CLEAR); BILIRUBIN,URINE NEGATIVE (NEGATIVE); BLOOD, URINE TRACE Ery/uL (NEGATIVE); COLOR,URINE YELLOW (YELLOW); KETONES,URINE NEGATIVE (NEGATIVE); LEUKOCYTE ESTERASE ,URINE LARGE (NEGATIVE); NITRITE, URINE NEGATIVE (NEGATIVE); PROTEIN,URINE NEGATIVE (NEGATIVE); UGLUCOSE NEGATIVE (NEGATIVE); UROBILINOGEN,URINE 0.2 EU/dL (0.2)
[2019-02-11 23:35] LABS: BACTERIA,URINE Many /HPF (None Seen); WBC,URINE 81-100 /HPF (0-3)
[2019-02-11 23:36] LABS: SQUAMOUS EPITHELIAL CELL,UR Moderate /HPF (None Seen)
[2019-02-12] MEDS: HYDROMORPHONE 1 MG/1 ML DISP.SYRIN SQ PRN ×5 (03:01→22:41)
[2019-02-12 07:07] LABS: CALCIUM, SERUM 6.5 mg/dL (8.5-10.1); CREATININE 0.7 mg/dL (0.6-1.3); POTASSIUM 3.1 mmol/L (3.5-5.1)
[2019-02-12] MEDS: LEVOTHYROXINE SODIUM 75 MCG TABLET PO SCH (07:30)
[2019-02-12] MEDS: PANTOPRAZOLE 40 MG TABLET.DR PO SCH (07:30)
[2019-02-12 08:00] VITALS: BP 138/71
[2019-02-12] MEDS ORDERED: CLINDAMYCIN 900 MG/6 ML VIAL ONE (08:44)
[2019-02-12] MEDS: DOCUSATE SODIUM 100 MG CAPSULE PO SCH ×2 (08:54→17:00)
[2019-02-12] MEDS: ASPIRIN 325 MG TABLET PO SCH ×2 (08:54→17:00)
[2019-02-12] MEDS: MIDODRINE HCL (5MG) 5 MG TABLET PO SCH ×2 (08:58→17:00)
[2019-02-12] MEDS: DULOXETINE HCL 30 MG CAPSULE.DR PO SCH (08:58)
[2019-02-12] MEDS: PREGABALIN 25 MG CAPSULE PO SCH ×2 (08:58→17:00)
[2019-02-12] MEDS: FAMOTIDINE (20 MG) 20 MG TABLET PO SCH ×2 (08:58→20:37)
[2019-02-12] MEDS: MULTIVIT W/MINERALS 1 TAB TABLET PO SCH (08:59)
[2019-02-12] MEDS: CHOLECALCIFEROL 1,000 UNIT TABLET (VIT D3) PO SCH (08:59)
[2019-02-12] MEDS: CALCITRIOL 0.25 MCG CAPSULE PO SCH (08:59)
[2019-02-12] MEDS: ASCORBIC ACID 500 MG TABLET PO SCH (08:59)
[2019-02-12] MEDS: POTASSIUM CL. PREMIX PERIPHER. 50 ML IV SCH ×4 (11:34→16:29)
[2019-02-12] MEDS: IV D5/ 0.9% NACL 1,000 ML IV PRN (12:10)
[2019-02-12] MEDS: POTASSIUM PHOSPHATE MM 7.5 MMOL in IV D5W 100 ML IV SCH ×2 (13:38→16:29)
[2019-02-12 16:00] VITALS: BP 121/72
[2019-02-12] MEDS: CEFTRIAXONE 1 G in IV D5W 50 ML IV SCH (18:15)
[2019-02-12 20:00] VITALS: BP 139/78
[2019-02-12] MEDS: POLYETHYLENE GLYCOL 3350 17 GM POWD.PACK PO SCH (21:16)
[2019-02-13] MEDS: HYDROMORPHONE 1 MG/1 ML DISP.SYRIN SQ PRN ×5 (01:59→22:21)
[2019-02-13] MEDS: IV D5/ 0.9% NACL 1,000 ML IV PRN ×2 (03:28→18:42)
[2019-02-13 07:07] LABS: CALCIUM, SERUM 6.5 mg/dL (8.5-10.1); CREATININE 0.7 mg/dL (0.6-1.3); POTASSIUM 3.7 mmol/L (3.5-5.1)
[2019-02-13] MEDS: LEVOTHYROXINE SODIUM 75 MCG TABLET PO SCH ×2 (07:30→13:27)
[2019-02-13 08:00] VITALS: BP 155/87
[2019-02-13] MEDS ORDERED: LORAZEPAM INJ 2 MG/ML VIAL IV PRN (08:30)
[2019-02-13] MEDS: MULTIVIT W/MINERALS 1 TAB TABLET PO SCH (09:00)
[2019-02-13] MEDS: ASCORBIC ACID 500 MG TABLET PO SCH (09:00)
[2019-02-13] MEDS: CALCITRIOL 0.25 MCG CAPSULE PO SCH (09:00)
[2019-02-13] MEDS: DOCUSATE SODIUM 100 MG CAPSULE PO SCH ×2 (09:00→17:00)
[2019-02-13] MEDS: PREGABALIN 25 MG CAPSULE PO SCH ×2 (09:00→17:00)
[2019-02-13] MEDS: MIDODRINE HCL (5MG) 5 MG TABLET PO SCH ×2 (09:00→17:00)
[2019-02-13] MEDS: CHOLECALCIFEROL 1,000 UNIT TABLET (VIT D3) PO SCH (09:00)
[2019-02-13] MEDS: DULOXETINE HCL 30 MG CAPSULE.DR PO SCH ×2 (09:00→13:24)
[2019-02-13] MEDS: FAMOTIDINE (20 MG) 20 MG TABLET PO SCH ×2 (09:00→21:00)
[2019-02-13] MEDS: ASPIRIN 325 MG TABLET PO SCH ×2 (09:00→17:00)
[2019-02-13] MEDS ORDERED: LORAZEPAM INJ 2 MG/ML VIAL IV ONE (10:00)
[2019-02-13 10:05] LABS: BASOPHILS % (AUTO) 0.6 % (0.0-2.0); EOSINOPHILS % (AUTO) 5.4 % (0.0-6.0); HEMATOCRIT 27 % (33-45); HEMOGLOBIN 9.1 g/dL (11.5-14.8); LYMPHOCYTES % (AUTO) 20.7 % (20.0-44.0); MEAN CORPUSCULAR HGB CONC 33 g/dl (31.0-36.0); MEAN CORPUSCULAR VOLUME 99 fL (82-100); MONOCYTES # (AUTO) 0.7 /CMM (0.1-1.30); MONOCYTES % (AUTO) 15.7 % (2.0-12.0); NEUTROPHILS # (AUTO) 2.7 /CMM (1.8-8.9); NEUTROPHILS % (AUTO) 57.6 % (43.0-81.0); PLATELET COUNT (AUTO) 228 /CMM (150-450); RED BLOOD CELL COUNT(AUTO) 2.74 MIL/uL (4.0-5.2); WHITE BLOOD COUNT (AUTO) 4.7 K/uL (4.3-11.0)
[2019-02-13] MEDS: PANTOPRAZOLE 40 MG VIAL IV SCH (10:13)
[2019-02-13] MEDS: HEPARIN SODIUM, PORCINE 5000 UNITS/1 ML VIAL SQ SCH ×2 (10:18→21:42)
[2019-02-13] MEDS: SOD FERRIC GLUC 125 MG in IV NS 0.9% 100 ML IV SCH (13:18)
[2019-02-13 16:00] VITALS: BP 151/84
[2019-02-13] MEDS: CEFTRIAXONE 1 G in IV D5W 50 ML IV SCH (18:02)
[2019-02-13 20:00] VITALS: BP 133/68
[2019-02-13 20:28] VITALS: BP 133/68
[2019-02-13] MEDS: POLYETHYLENE GLYCOL 3350 17 GM POWD.PACK PO SCH (21:39)
[2019-02-14] MEDS: HYDROMORPHONE 1 MG/1 ML DISP.SYRIN SQ PRN ×4 (02:46→20:44)
[2019-02-14 08:00] VITALS: BP 112/65
[2019-02-14] MEDS ORDERED: ALBUTEROL FS 2.5 MG/3 ML VIAL.NEB NEB PRN (08:00)
[2019-02-14] MEDS ORDERED: IPRATROPIUM NEB FS 0.5 MG/2.5 ML AMPUL.NEB NEB PRN (08:00)
[2019-02-14] MEDS: DOCUSATE SODIUM 100 MG CAPSULE PO SCH ×2 (08:33→16:44)
[2019-02-14] MEDS: MIDODRINE HCL (5MG) 5 MG TABLET PO SCH ×2 (08:33→16:44)
[2019-02-14] MEDS: ASPIRIN 325 MG TABLET PO SCH ×2 (08:33→10:52)
[2019-02-14] MEDS: PREGABALIN 25 MG CAPSULE PO SCH ×2 (08:33→16:44)
[2019-02-14] MEDS: FAMOTIDINE (20 MG) 20 MG TABLET PO SCH ×2 (08:33→20:47)
[2019-02-14] MEDS: CALCITRIOL 0.25 MCG CAPSULE PO SCH (08:34)
[2019-02-14] MEDS: CHOLECALCIFEROL 1,000 UNIT TABLET (VIT D3) PO SCH (08:34)
[2019-02-14] MEDS: ASCORBIC ACID 500 MG TABLET PO SCH (08:34)
[2019-02-14] MEDS: MULTIVIT W/MINERALS 1 TAB TABLET PO SCH (08:34)
[2019-02-14] MEDS: PANTOPRAZOLE 40 MG VIAL IV SCH (08:38)
[2019-02-14] MEDS: HEPARIN SODIUM, PORCINE 5000 UNITS/1 ML VIAL SQ SCH (08:39)
[2019-02-14] MEDS: SOD FERRIC GLUC 125 MG in IV NS 0.9% 100 ML IV SCH (13:24)
[2019-02-14 16:00] VITALS: BP 145/80
[2019-02-14] MEDS: IV D5/ 0.9% NACL 1,000 ML IV PRN (18:14)
[2019-02-14 20:02] VITALS: BP 141/74
[2019-02-14] MEDS: POLYETHYLENE GLYCOL 3350 17 GM POWD.PACK PO SCH (21:18)
[2019-02-15] MEDS: HYDROMORPHONE 1 MG/1 ML DISP.SYRIN SQ PRN (00:35)
[2019-02-15 08:00] VITALS: BP 137/76
[2019-02-15] MEDS: LEVOTHYROXINE SODIUM 75 MCG TABLET PO SCH (08:06)
[2019-02-15] MEDS: oxyCODONE IR immediate release 5 MG PO PRN ×3 (08:07→18:06)
[2019-02-15] MEDS: PANTOPRAZOLE 40 MG VIAL IV SCH (08:24)
[2019-02-15] MEDS: PREGABALIN 25 MG CAPSULE PO SCH ×2 (08:24→17:33)
[2019-02-15] MEDS: ASCORBIC ACID 500 MG TABLET PO SCH (08:25)
[2019-02-15] MEDS: CHOLECALCIFEROL 1,000 UNIT TABLET (VIT D3) PO SCH (08:25)
[2019-02-15] MEDS: MULTIVIT W/MINERALS 1 TAB TABLET PO SCH (08:25)
[2019-02-15] MEDS: FAMOTIDINE (20 MG) 20 MG TABLET PO SCH ×2 (08:25→21:03)
[2019-02-15] MEDS: ASPIRIN 325 MG TABLET PO SCH ×2 (08:25→17:41)
[2019-02-15] MEDS: DOCUSATE SODIUM 100 MG CAPSULE PO SCH ×2 (08:25→17:42)
[2019-02-15] MEDS: DULOXETINE HCL 30 MG CAPSULE.DR PO SCH (08:26)
[2019-02-15] MEDS: MIDODRINE HCL (5MG) 5 MG TABLET PO SCH ×2 (08:26→17:00)
[2019-02-15] MEDS: CALCITRIOL 0.25 MCG CAPSULE PO SCH (09:37)
[2019-02-15] MEDS ORDERED: MEROPENEM 1 G in IV NS 0.9% 100 ML IV ONE (11:00)
[2019-02-15 16:00] VITALS: BP 102/51
[2019-02-15] MEDS: SOD FERRIC GLUC 125 MG in IV NS 0.9% 100 ML IV SCH (16:30)
[2019-02-15 20:00] VITALS: BP 119/77
[2019-02-15 20:05] VITALS: BP 109/60
[2019-02-15] MEDS ORDERED: BARIUM SULFATE 148 GM SUSP.RECON PO ONE (21:45)
[2019-02-15] MEDS ORDERED: BARIUM SULFATE 240 ML ORAL.SUSP PO ONE (21:45)
[2019-02-15] MEDS ORDERED: MEROPENEM 1 G in IV NS 0.9% 100 ML IV SCH (23:00)
== END 2019-02-15 21:46 | disposition left against medical advice (07) | DRG 469 ==
LOC: DS 04:34 → MED 04:54 → DS 04:54 → MED 11:08
PROVIDERS: ADMIT Family Medicine; ATTEND Internal Medicine
PROC: 0SRD0J9 Replacement of Left Knee Joint with Synthetic Substitute, Cemented, Open Approach (ICD-10-PCS; principal; 2019-02-08)
PROC: 0DJ08ZZ Inspection of Upper Intestinal Tract, Via Natural or Artificial Opening Endoscopic (ICD-10-PCS; 2019-02-12)
DX: M17.12 Unilateral primary osteoarthritis, left knee (principal); N17.0 Acute kidney failure with tubular necrosis; J69.0 Pneumonitis due to inhalation of food and vomit; M48.56XA Collapsed vertebra, not elsewhere classified, lumbar region, initial encounter for fracture; F11.20 Opioid dependence, uncomplicated; E87.1 Hypo-osmolality and hyponatremia; N39.0 Urinary tract infection, site not specified; F31.9 Bipolar disorder, unspecified; R13.10 Dysphagia, unspecified; G43.909 Migraine, unspecified, not intractable, without status migrainosus; M06.9 Rheumatoid arthritis, unspecified; Z87.891 Personal history of nicotine dependence; Z98.890 Other specified postprocedural states; Z79.899 Other long term (current) drug therapy; M41.9 Scoliosis, unspecified; M48.061 Spinal stenosis, lumbar region without neurogenic claudication; K21.9 Gastro-esophageal reflux disease without esophagitis; G89.4 Chronic pain syndrome; G47.00 Insomnia, unspecified; D63.8 Anemia in other chronic diseases classified elsewhere; K76.0 Fatty (change of) liver, not elsewhere classified; E87.6 Hypokalemia; R32 Unspecified urinary incontinence; E21.5 Disorder of parathyroid gland, unspecified; Z93.1 Gastrostomy status; N28.1 Cyst of kidney, acquired; E89.0 Postprocedural hypothyroidism; K44.9 Diaphragmatic hernia without obstruction or gangrene
CPT/HCPCS: 36415; 43246; 70490-TC; 71045-TC; 74230-TC; 76700-TC; 76770-TC; 80048-TC; 80053-TC; 80061-TC; 81000-TC; 82550-TC; 82570-TC; 82728-TC; 82962-TC; 83540-TC; 83735-TC; 83970; 84100-TC; 84155; 84155-TC; 84165; 84300-TC; 85025-TC; 86850-TC; 87081-TC; 87086-TC; 88305-TC; 88311-TC; 92526; 92611-TC; 93971-TC; 97110-TC; 97112-TC; 97116-TC; 97530-TC; 97760-TC; C9113; G0378; J0696; J1170; J1644; J2060; J2175; J2185; J2250; J2405; J2704; J2710; J2765; J2916; J3010; J3475; J3480; J3490; J7030; J7042; J7050; J7060